=== PATIENT | male | born 1975 | race Caucasian/White ===

== ENCOUNTER 2016-11-12 09:00 | Emergency (ER) | payer SELFPAY ==
[~2016-11-12 09:00] MED LIST: ANTIVERT25 MG PO; ASPIRIN325 M3 PO; AUGMENTIN 875-11 TAB PO; B/P MED; CELEBREX100 MG PO; CELEXA20 MG; CIPRO500 MG PO; COMPAZINE10 M PO; CYMBALTA60 M1 PO; DEPAKOTE500 MG; FLEXERIL10 MG PO; HYDROXYZINE HCL25 M1 PO; LEXAPRO20 MG; LEXAPRO20 MG PO; LOVAZA1 GM/CAP PO; MELOXICAM15 M1 PO; METRONIDAZOLE500 MG PO; MOTRIN IB200 MG; NO HOME MEDICATION XX; NORCO 5-325 TA1 EACH PO; NORCO 5/325 TAB1 TAB PO; OXYCODONE HCL5 M1 PO; PEN-VEE K500 MG PO; PERCOCET 5/3251 TAB PO; PRILOSEC OTC20 M1 PO; TRILEPTAL300 MG; TRILEPTAL300 MG PO; TRILEPTAL600 MG; ULTRAM50 M1 PO; VICODIN 5/500 T1 TAB PO; VITAMIN D350000 UNI1 PO; ZESTORETIC 20-1 EAC4 PO
[2016-11-12] MEDS ORDERED: IBUPROFEN600 M1 PO (10:39)
== END 2016-11-12 10:48 ==
LOC: EDMED 09:00
DX: S96.812A Strain of other specified muscles and tendons at ankle and foot level, left foot, initial encounter (principal); I10 Essential (primary) hypertension; F17.210 Nicotine dependence, cigarettes, uncomplicated; Z79.899 Other long term (current) drug therapy; E66.01 Morbid (severe) obesity due to excess calories; X58.XXXA Exposure to other specified factors, initial encounter